=== PATIENT | male | born 1985 | race Caucasian/White ===

== ENCOUNTER 2016-11-15 21:57 | Emergency (ER) | payer MEDICAID, OTHER ==
[~2016-11-15] VITALS: Ht 177.8 cm; Wt 114.5 kg
[~2016-11-15 21:57] MED LIST: ALPR2TAB PO; CEPH-443 PO; DIVA500T7 PO; HYDR-762 PO; LIT300 PO; QUET50TA16 PO
[2016-11-15 22:02] VITALS: Ht 177.8 cm; Wt 114.5 kg
[2016-11-15] MEDS ORDERED: PROMETHAZINE/CODEINE 5ML CUP PO ONE (23:00)
--- NOTE | 2016-11-15 23:31 | RADRPT ---
PROCEDURE: CHEST - 1 VIEW CLINICAL INDICATION: 30-year-old male with cough. TECHNIQUE: A single frontal AP upright portable view of the chest was performed. The images were reviewed on a PACS workstation. COMPARISON: None. FINDINGS: The cardiomediastinal silhouette is within normal limits. There is a shallow inspiration. There is minimal bibasilar subsegmental atelectasis. There is no evidence for an infiltrate. The pulmonary vascularity is within normal limits. There is no evidence for pneumothorax or pneumomediastinum. The osseous structures are intact. IMPRESSION: Shallow inspiration with minimal bibasilar subsegmental atelectasis. .Les Bowman MD, Date Time Electronically viewed and signed by .Les Bowman MD, MD on 11/15/2016 23:31 .Tanner
[2016-11-15] MEDS ORDERED: ALBUTEROL/IPRATROPIUM (NEB) 3 ML AMP HHN STA (23:55)
--- NOTE | 2016-11-16 00:05 | ERD ---
ER Documentation Chief Complaint Date/Time DATE: 11/16/16 TIME: 00:04 Chief Complaint bilateral foot pain/ injury HPI 30-year-old male comes in with a cough and right foot pain. Is unrelated complaints. Cough been going on for 2-3 days. Right foot pain secondary to ingrown toenail. No fevers no chills. No other current complaints. Cough mildly productive. History of asthma. ROS All systems reviewed and are negative except as per history of present illness. Medications Home Meds Reported Medications Cephalexin* (Keflex*) 500 Mg Capsule, 500 MG PO QID X14 DAYS, CAP 03/05/14 Hydrocodone Bit-Acetaminophen* ([place]*) 10-325 Mg Tablet, 1 TAB PO Q6 Y for PAIN , TAB 03/05/14 Alprazolam* (Xanax*) 2 Mg Tablet, 2 MG PO TID, TAB 03/05/14 Quetiapine Fumarate* (Seroquel*) 50 Mg Tablet, 600 MG PO HS 07/10/13 Divalproex Sodium* (Depakote ER*) 500 Mg Tabsr, 1000 MG PO BID 07/10/13 [place] Carbonate* ([place]*) 300 Mg Cap, 600 MG PO BID, CAP 07/10/13 Allergies Allergies: Coded Allergies: Haloperidol Lactate (Verified Allergy, Severe, TOUNGE SWELLING, 03/05/14) aripiprazole (Verified Allergy, Severe, TOUNGE SWELLING, 03/05/14) chlorpromazine HCl (Verified Allergy, Severe, TOUNGE SWELLING, 03/05/14) fluphenazine HCl (Verified Allergy, Severe, TOUNGUE SWELLING, 03/05/14) fluphenazine enanthate (Verified Allergy, Severe, TOUNGUE SWELLING, ) haloperidol (Verified Allergy, Severe, TOUNGE SWELLING, 03/05/14) olanzapine (Verified Allergy, Severe, TOUNGE SWELLING, 03/05/14) ziprasidone HCl (Verified Allergy, Severe, TOUNGE SWELLING, 03/05/14) ziprasidone mesylate (Verified Allergy, Severe, TOUNGE SWELLING, 03/05/14) Uncoded Allergies: RESPIRIDOL (Allergy, Severe, TOUNGE SWELLING, 07/28/11) PMhx/Soc History of Surgery: Yes (Mandible repair, wrist, nose) Anesthesia Reaction: No Hx Neurological Disorder: No Hx Respiratory Disorders: Yes (Asthma) Hx Cardiac Disorders: No Hx Psychiatric Problems: Yes (bipolar, schizoaffective) Hx Miscellaneous Medical Probl: No Hx Alcohol Use: Yes Hx Substance Use: Yes (marijuana, occasional ecstacy) Hx Tobacco Use: Yes Smoking Status: Current every day smoker Physical Exam Vitals Vital Signs Date Time Temp Pulse Resp B/P Pulse Ox O2 Delivery O2 Flow Rate FiO2 11/15/16 22:02 97.4 91 20 137/78 98 Physical Exam Const: [] Head: Atraumatic Eyes: Normal Conjunctiva ENT: Normal External Ears, Nose and Mouth. Neck: Full range of motion..~ No meningismus. Resp: Clear to auscultation bilaterally Cardio: Regular rate and rhythm, no murmurs Abd: Soft, non tender, non distended. Normal bowel sounds Skin: No petechiae or rashes Back: No midline or flank tenderness Ext: No cyanosis, or edema Neur: Awake and alert Psych: Normal Mood and Affect Results 24 hrs Current Medications Medications (Trade) Dose Ordered Sig/[place] Route PRN Reason Start Time Stop Time Status Last Admin Dose Admin Promethazine HCl/ Codeine (Phenergan/ Codeine) 10 ml ONCE ONCE PO 11/15/16 23:00 11/15/16 23:01 DC 11/15/16 23:14 Albuterol/ Ipratropium (Duoneb) 3 ml ONCE STAT HHN 11/15/16 23:55 11/15/16 23:57 DC Procedures/MDM Chest X-ray 1V Interpreted by me: Soft Tissue: No acute abnormalities Bones: No acute abnormalities Mediastinum/Cardiac Silhouette/Lungs: [No acute abnormalities] Medical decision-m[age]-year-old male comes in essentially for mild bronchitis. Also has ingrown toenail. Told to follow-up with hop strainer. Discharged home with prednisone albuterol and azithromycin along with cough suppressant. Follow-up with PCP. Departure Diagnosis: Primary Impression: Bronchitis Additional Impression: Ingrown toenail Condition: Stable VELVET L[place]ON Nov 16, 2016 00:05
[2016-11-16] MEDS ORDERED: PROM5SYR2 PO (00:07)
[2016-11-16] MEDS ORDERED: SULF1TAB31 PO (00:07)
[2016-11-16] MEDS ORDERED: AZIT250T94 PO (00:07)
[2016-11-16] MEDS ORDERED: ALBU18HF INHALATION (00:07)
== END 2016-11-16 01:00 | disposition home or self-care (01) ==
LOC: E/R 21:57
DX: J20.9 Acute bronchitis, unspecified (principal); L60.0 Ingrowing nail; M79.672 Pain in left foot; J45.909 Unspecified asthma, uncomplicated; F17.210 Nicotine dependence, cigarettes, uncomplicated; R05 Cough
CPT/HCPCS: 71010; 94664; Z7502; Z7610